=== PATIENT | female | born 1990 | race Caucasian/White ===

== ENCOUNTER 2018-02-03 14:44 | Emergency (ER) | payer BC ==
[2018-02-03] MEDS ORDERED: OXYCODONE/APAP 5/325 TAB PO ONE (15:27)
--- NOTE | 2018-02-03 15:30 | EDPHY ---
H & P Stated Complaint: coccyx pain fell at [place] Time Seen by Provider: 02/03/18 15:06 HPI/ROS: CHIEF COMPLAINT: Tailbone pain HISTORY OF PRESENT ILLNESS: The patient is a 27-year-old female who was snowboarding today. She fell twice onto her tailbone. She has significant pain with sitting. She is able to ambulate without difficulty. No paresthesias weakness or numbness. She denies other injuries. She has not taken any pain medications. Severity: Moderate Modifying factors: None REVIEW OF SYSTEMS: Constitutional: denies: chills, fever, recent illness, recent injury EENTM: denies: blurred vision, double vision, nose congestion Respiratory: denies: cough, shortness of breath Cardiac: denies: chest pain, irregular heart rate, lightheadedness, palpitations Gastrointestinal/Abdominal: denies: abdominal pain, diarrhea, nausea, vomiting, blood streaked stools Genitourinary: denies: dysuria, frequency, hematuria, pain Musculoskeletal: denies: joint pain, muscle pain Skin: denies: lesions, rash, jaundice, bruising Neurological: denies: headache, numbness, paresthesia, tingling, dizziness, weakness Hematologic/Lymphatic: denies: blood clots, easy bleeding, easy bruising Immunologic/allergic: denies: HIV/AIDS, transplant 10 systems reviewed and negative except as noted EXAM: GENERAL: Well-appearing, well-nourished and in no acute distress. HEAD: Atraumatic, normocephalic. EYES: Pupils equal round and reactive to light, extraocular movements intact, sclera anicteric, conjunctiva are normal. ENT: TMs normal, nares patent, oropharynx clear without exudates. Moist mucous membranes. NECK: Normal range of motion, supple without lymphadenopathy or JVD. LUNGS: Breath sounds clear to auscultation bilaterally and equal. No wheezes rales or rhonchi. HEART: Regular rate and rhythm without murmurs, rubs or gallops. ABDOMEN: Soft, nontender, normoactive bowel sounds. No guarding, no rebound. No masses appreciated. BACK: Tenderness to coccyx, No CVA tenderness, no spinal tenderness, step-offs or deformities EXTREMITIES: Normal range of motion, no pitting or edema. No clubbing or cyanosis. NEUROLOGICAL: Cranial nerves II through XII grossly intact. Normal speech, normal gait. 5/5 strength, normal movement in all extremities, normal sensation , normal reflexes PSYCH: Normal mood, normal affect. SKIN: No bruising or abrasions. Warm, dry, normal turgor, no visible rashes or lesions. Source: Patient Exam Limitations: No limitations - Personal History LMP (Females 10-55): Now - Medical/Surgical History Hx Asthma: No Hx Chronic Respiratory Disease: No Hx Diabetes: No Hx Cardiac Disease: No Hx Renal Disease: No Hx Cirrhosis: No Hx Alcoholism: No Hx HIV/AIDS: No Hx Splenectomy or Spleen Trauma: No Other PMH: denies - Family History Significant Family History: No pertinent family hx - Social History Smoking Status: Never smoked Alcohol Use: Sober Drug Use: None Constitutional: Initial Vital Signs Temperature (C) 36.7 C 02/03/18 14:46 Heart Rate 89 02/03/18 14:46 Respiratory Rate 16 02/03/18 14:46 Blood Pressure 110/77 02/03/18 14:46 O2 Sat (%) 97 02/03/18 14:46 O2 Delivery Mode Room Air Allergies/Adverse Reactions: No Known Allergies Allergy (Unverified 02/03/18 14:45) Home Medications: Medication Instructions Recorded NK [No Known Home Meds] 02/03/18 Medical Decision Making - Diagnostics Imaging Results: Imaging Impressions Pelvis X-Ray 02/03/18 15:27 Impression: Negative for fracture. Sacrum and Coccyx, 3 Views Clinical Indications: Pain following trauma. Findings: A fracture is not identified. The bones have normal alignment. Soft tissues are unremarkable. Impression: Negative sacrum and coccyx. Sacrum and Coccyx X-Ray 02/03/18 15:28 Impression: Negative for fracture. Sacrum and Coccyx, 3 Views Clinical Indications: Pain following trauma. Findings: A fracture is not identified. The bones have normal alignment. Soft tissues are unremarkable. Impression: Negative sacrum and coccyx. Imaging: Discussed imaging studies w/ call center recruiter Radiologist ED Course/Re-evaluation: 4:45 p.m. We discussed the x-ray results. Patient is reassured. I encouraged rest and icing. We discussed indications for returning Differential Diagnosis: Partial list of the Differential diagnosis considered include but were not limited to; contusion, coccyx fracture and although unlikely based on the history and physical exam, I also considered pelvic fracture, hip fracture, spinal injury. I discussed these differential diagnoses and the plan with the patient as well as the usual and expected course. The patient understands that the diagnosis is provisional and that in medicine we are not always correct and that further workup is often warranted. Usual and customary warnings were given. All of the patient's questions were answered. The patient was instructed to return to the emergency department should the symptoms at all worsen or return, otherwise to followup with the physician as we discussed. - Data Points Medications Given: Discontinued Medications Oxycodone/Acetaminophen (Percocet 5/325) 2 tab PO EDNOW ONE Stop: 02/03/18 15:28 Last Admin: 02/03/18 15:29 Dose: 2 tab Departure - Departure Disposition: Home, Routine, Self-Care Clinical Impression: Coccygeal contusion Qualifiers: Encounter type: initial encounter Qualified Code(s): S30.0XXA - Contusion of lower back and pelvis, initial encounter Condition: Fair Instructions: Coccyx Injury (ED) Referrals: KIARA CABALLERO [Other] - As per Instructions
[2018-02-03 16:58] VITALS: BP 114/68
== END 2018-02-03 16:57 | disposition home or self-care (01) ==
DX: S30.0XXA Contusion of lower back and pelvis, initial encounter (principal); V00.311A Fall from snowboard, initial encounter; Y93.23 Activity, snow (alpine) (downhill) skiing, snowboarding, sledding, tobogganing and snow tubing; Y92.9 Unspecified place or not applicable